=== PATIENT | male | born 1970 | race Caucasian/White ===

== ENCOUNTER → 2017-01-09 10:13 | Outpatient (CLI) | payer MEDICARE ==
[2016-05-29 07:25] VITALS: BMI 25.1
[~2017-01-09 10:13] MED LIST: FISH OIL 1,2001 CAP PO; GEMFIBROZIL600 MG PO; HYDROCODONE-APA1 TAB PO; MULTIPLE VITAMI1 TA1 PO; ZOCOR40 MG PO
--- NOTE | 2017-01-09 14:36 | NUR ---
Nutrition education for DMT2: Pt reports he was drinking Mt Dew by the case every day; now is down to ~2 or 3 a day. Pt eats meat and potatoes; will not eat nonstarchy vegetables. However, pt has started to eat a few salads at times. Pt does not like water and drinks very little. Pt is trying to find a replacement for Mt. Dew but does not want to drink water. Pt is drinking milk and juice and sport drinks at this time. Pt is opting for suger-free at this time. Pt believes these drinks do not contain artificial sweetners. Pt reports he works at [employer] and is very active during his shift. Pt has started to lift some weights. 46 year old male Ht: 6' Wt: 175# IBW: 178# +/-10% BMI: 23.7 Meds: Metformin Labs: A1c: 6.7% (stated) Reviewed CHO containing foods and the affect CHO have on glucose. Reviewed portion sizes of common CHO foods. Discussed the importance of eating meals at regular times, same amount of CHO per meals and portion control to keep glucose under good control. Reviewed sample menus. Pt is overeating CHO foods and is still drinking sugary soft drinks. Advised pt to start drinking water to quench thrist because drinking juice and milk are still contributing to his CHO intake. Pt is not happy with this suggestion because he is not a big fan of water. Discussed the complications of uncontrolled DMT2. Pt with good understanding of information provided. However, I do not think pt is going to be very compliant with information. Provided pt with printed diet information and RDN name and phone number. RDN will be available if needed. Thank you for the consult.
== END | disposition home or self-care (01) ==
LOC: D.FANS 10:13
DX: E11.9 Type 2 diabetes mellitus without complications (principal)